=== PATIENT | male | born 1980 | race Caucasian/White ===

== ENCOUNTER 2021-01-20 17:37 | Emergency (ER) | payer OTHER ==
[~2021-01-20] VITALS: Ht 193 cm; Wt 122.5 kg
[2021-01-20] MEDS ORDERED: ZOLOFT50 MG (17:49)
[2021-01-20] MEDS ORDERED: LIPITOR40 M1 (17:49)
== END 2021-01-20 19:38 | disposition home or self-care (01) ==
LOC: ER 17:37
DX: K42.9 Umbilical hernia without obstruction or gangrene (principal)